=== PATIENT | male | born 1985 | race African-American/Black ===

== ENCOUNTER 2016-10-26 13:14 | Emergency (ER) | payer OTHER, MEDICARE, MEDICAID ==
[2016-10-26] MEDS ORDERED: 0.9 % SODIUM CHLORIDE 1,000 ML BAG IV ONE (13:30)
[2016-10-26] MEDS ORDERED: HYDROMORPHONE HCL 1MG/ML **SYRINGE IVP ONE (13:31)
[2016-10-26] MEDS ORDERED: DIPHENHYDRAMINE HCL IV 50 MG/ML VIAL IVP ONE (13:31)
--- NOTE | 2016-10-26 13:38 | Emergency Department Record ---
History of Present Illness - General Chief complaint: Pain Stated complaint: PAIN IN ARMS AND LEGS Time Seen by Provider: 10/26/16 13:29 Source: Patient Mode of Arrival: Ambulatory Limitations: No limitations - History of Present Illness Initial comments: 31 yo male presents with extremity pain. He has sickle cell disease. His pain started early in the morning. No fever, rash, cough or chest pain. No swelling. He has pain with ambulation. Last transfusion was about 3 years ago. He follows with Dr Martin [facility] Complaint: Extremity pain Onset/Timin -: Days(s) Location: Bilateral, Arm, Lower Leg, Thigh History of Same: Yes Radiation: None Severity scale (1-10): 9 Quality: Sharp Consistency: Constant Improves with: Nothing Worsens with: Nothing Associated Symptoms: Denies other symptoms - Related Data Home Medications Medication Instructions Recorded Confirmed Last Taken Hydrocodone/Acetaminophen [[place] 1 each PO Q6H PRN 10/26/16 10/26/16 Unknown 7.5-325 Tablet] Allergies Allergy/AdvReac Type Severity Reaction Status Date / Time droperidol Allergy HIVES Verified 10/26/16 13:25 ketorolac tromethamine Allergy BEHAVIORAL Verified 11/15/15 09:53 [From Toradol] CHANGES metoclopramide HCl Allergy BEHAVIORAL Verified 11/15/15 09:53 [From Reglan] CHANGES Penicillins Allergy RASH Verified 11/15/15 09:53 prochlorperazine edisylate Allergy BEHAVIORAL Verified 11/15/15 09:53 [From Compazine] CHANGES prochlorperazine maleate Allergy BEHAVIORAL Verified 11/15/15 09:53 [From Compazine] CHANGES Travel Screening - Travel/Exposure Within Last 30 Days Have you traveled within the last 30 days?: No Review of Systems Constitutional: Denies: Chills, Fever, Malaise, Weakness Eyes: Denies: Eye discharge, Eye pain, Photophobia, Vision change ENT: Denies: Congestion, Throat pain Respiratory: Denies: Cough, Dyspnea, Hemoptysis, Stridor, Wheezes Cardiovascular: Denies: Chest pain, Palpitations, Syncope Endocrine: Denies: Fatigue, Polydipsia, Polyuria Gastrointestinal: Denies: Abdominal pain, Diarrhea, Nausea, Vomiting Genitourinary: Denies: Dysuria, Frequency, Hematuria Musculoskeletal: Reports: Arthralgia, Myalgia. Denies: Joint swelling, Neck pain Skin: Denies: Bruising, Change in color, Rash Neurological: Denies: Headache, Numbness, Vertigo, Weakness Psychiatric: Denies: Anxiety Hematological/Lymphatic: Denies: Blood Clots, Easy bleeding, Easy bruising, Swollen glands Past Medical History - SOCIAL HISTORY Smoking Status: Never smoker - RESPIRATORY Hx Respiratory Disorders: No Hx Dyspnea: Yes Comment:: home 02 for sickle colleen crisis - CARDIOVASCULAR Hx Cardio Disorders: No - NEURO Hx Neuro Disorders: No - GI Hx GI Disorders: No - Hx Genitourinary Disorders: No - ENDOCRINE Hx Endocrine Disorders: No - MUSCULOSKELETAL Hx Musculoskeletal Disorders: Yes Hx Arthritis: Yes - PSYCH Hx Psych Problems: No - HEMATOLOGY/ONCOLOGY Hx Hematology/Oncology Disorders: Yes Hx Sickle Cell Disease: Yes Family Medical History Any Significant Family History?: Yes Hx Heart Disease: Father, Mother Physical Exam - General General Appearance: Alert, Oriented x3, Cooperative, No acute distress Limitations: No limitations - Head Head exam: Normal inspection - Eye Eye exam: Normal appearance, PERRL. negative: Conjunctival injection - ENT ENT exam: Normal exam, Mucous membranes moist Ear exam: Normal external inspection Nasal Exam: Normal inspection Mouth exam: Normal external inspection - Neck Neck exam: Normal inspection, Full ROM. negative: Tenderness - Respiratory Respiratory exam: Normal lung sounds bilaterally. negative: Respiratory distress - Cardiovascular Cardiovascular Exam: Regular rate, Normal rhythm, Normal heart sounds - GI/Abdominal GI/Abdominal exam: Soft. negative: Distended, Guarding, Rebound, Tenderness - Rectal Rectal exam: Deferred - exam: Deferred - Extremities Extremities exam: Normal inspection, Full ROM, Normal capillary refill, Tenderness. negative: Joint swelling, Pedal edema - Back Back exam: Reports: Normal inspection, Full ROM. Denies: Muscle spasm, Rash noted, Tenderness - Neurological Neurological exam: Alert, Normal gait, Oriented X3 - Psychiatric Psychiatric exam: Normal affect, Normal mood - Skin Skin exam: Dry, Intact, Normal color, Warm Course Vital Signs 10/26/16 13:21 Temperature 98.1 F Pulse Rate 68 Respiratory 20 Rate Blood Pressure 148/96 Pulse Ox 100 - Reevaluation(s) Reevaluation #1: EMR reviewed Last ED visit was 12/201510/26/16 13:39 Consistent prescribing on MAPS 10/26/16 13:40 Reevaluation #2: No acute changes on the UA or CBC. 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
[2016-10-26] MEDS ORDERED: DIAZEPAM 5 MG/1 ML TUBX IM ONE (13:49)
[2016-10-26] MEDS ORDERED: DIPHENHYDRAMINE HCL IV 50 MG/ML VIAL IM ONE (13:49)
[2016-10-26] MEDS ORDERED: HYDROMORPHONE HCL 2 MG/ML VIAL IM ONE (13:49)
[2016-10-26 14:14] LABS: BASO % 0.4 % (0-6); EOS % 2.8 % (0-6); GRAN % 68.4 % (47-80); HEMOGLOBIN 13.3 gm/dl (14.0-18.0); LYMPH % 23.4 % (16-45); MEAN CELL VOLUME 69.9 fl (81-97); MEAN CORPUSCULAR HEMOGLOBIN 23.8 pg (27-33); MEAN CORPUSCULAR HGB CONC 34.1 g/dl (32-36); MEAN PLATELET VOLUME 9.8 fl (7.4-10.4); PLATELET COUNT 197 K/uL (130-400); RED BLOOD COUNT 5.58 M/uL (4.40-5.70); RED CELL DISTRIBUTION WIDTH 17.4 % (11.5-14.5); RETICULOCYTE COUNT 1.6 % (0.0-2.0); WHITE BLOOD COUNT W/O DIFF 5.4 K/uL (4.2-12.2)
[2016-10-26 14:32] LABS: ALB/GLOB RATIO 1.5 (1.1-1.8); ALBUMIN 4.8 gm/dL (3.5-5.0); ALKALINE PHOSPHATASE 77 U/L (38-126); ALT/SGPT 42 U/L (21-72); ANION GAP 12.3 (7-16); AST/SGOT 33 U/L (17-59); BILIRUBIN,TOTAL 1.01 mg/dL (0.2-1.3); BLOOD UREA NITROGEN 5 mg/dL (9-20); CARBON DIOXIDE 23.7 mmol/L (22-30); EST GLOMERULAR FILTRATION RATE > 60 ml/min; GLUCOSE,RANDOM 98 mg/dL (70-110); TOTAL PROTEIN 8.1 gm/dL (6.3-8.2)
[2016-10-26 14:33] LABS: URINE APPEARANCE CLEAR; URINE BILIRUBIN NEGATIVE (NEGATIVE); URINE BLOOD NEGATIVE (NEGATIVE); URINE COLOR YELLOW; URINE GLUCOSE (UA) NEGATIVE (NEGATIVE); URINE KETONE NEGATIVE (NEGATIVE); URINE LEUKOCYTE ESTERASE NEGATIVE (NEGATIVE); URINE NITRITE NEGATIVE (NEGATIVE); URINE PROTEIN NEGATIVE (NEGATIVE); URINE UROBILINOGEN 0.2 E.U./dL (0.20 - 1.00)
[2016-10-26] MEDS ORDERED: HYDROMORPHONE HCL 1MG/ML **SYRINGE IM ONE (14:49)
== END 2016-10-26 15:20 | disposition home or self-care (01) ==
LOC: ER 13:14
DX: D57.00 Hb-SS disease with crisis, unspecified (principal)
CPT/HCPCS: 80053; 81003; 85025; 85044; 96372; 99283; 99284; J1170; J1200; J3360